=== PATIENT | female | born 1995 ===

== ENCOUNTER 2020-02-11 09:14 | Inpatient (IN) | payer BC ==
[~2020-02-11] VITALS: Ht 157.5 cm; Wt 75.0 kg
[2020-02-13] VITALS (44 sets, daily range): BP systolic 98–137; BP diastolic 56–89; PULSE 62–102; TEMP 98.1–98.4
[2020-02-13] MEDS ORDERED: PRENATAL TABLET PO (06:30)
[2020-02-13 07:30] LABS: BASO % 0.5 % (0.0-2.0); EOS # 0.1 (0.0-0.7); EOS % 0.6 % (0-4.0); GRAN # 5.4 (1.4-6.5); GRAN % 66.6 % (42.2-75.2); HEMOGLOBIN 11.2 g/dl (12.5-16.0); LYMPH # 1.8 (1.2-3.4); LYMPH % 22.6 % (20.0-51.0); MEAN CELL VOLUME 87 fl (80.0-100.0); MEAN CORPUSCULAR HEMOGLOBIN 28 pg (27.0-31.0); MEAN CORPUSCULAR HGB CONC 33 g/dl (33.0-37.0); MEAN PLATELET VOLUME 10.9 fl (7.4-10.4); MONO # 0.7 (0.1-0.6); MONO % 9.2 % (1.7-9.3); PLATELET COUNT 265 K/mm3 (130-400); RED BLOOD COUNT 3.95 M/mm3 (4.10-5.30); REDCELL DISTRIBUTION WIDTH-CV 13.7 % (11.5-14.5)
--- NOTE | 2020-02-13 07:31 | NUR ---
0606 PATIENT HERE FOR INDUCTION OF LABOR. ASSESSMENT COMPLETED. EFM ON FHT 135 BABY VERY ACTIVE. OCCASIONAL CONTRACTIONS NOTED TO STRIP BUT NOT FELT BY PATIENT. IV STARTED.
[2020-02-13 07:35] LABS: HEMATOCRIT 34.2 % (37.0-47.0)
--- NOTE | 2020-02-13 11:44 | NUR ---
1120 PATIENT READY FOR EPIDURAL. Juani BURGESS CALLED AND SITS UP ON EDGE OF BED TOLERTES WELL. SEE Juani BURGESS BORING MACHINE FEEDER FOR QUESTIONS.
--- NOTE | 2020-02-13 16:14 | NUR ---
1530 patient complete will start pushing. Dr Romano called to come for delivery.
--- NOTE | 2020-02-13 16:16 | NUR ---
[address] SHAY AT [facility]. 1545 PATIENT PUSHES AND BABY BOY BORN VIA BY DR SHAY. STRONG CRY NOTED. CORD CLAMPED AND CUT BY AND BABY TO MOMS CHEST SKIN TO SKIN. 1547 PLACENTA DELIVERED AND PITOCIN STARTED AT 333 PER PROTOCOL. FUNDUS FIRM AND BLEEDING WNL
[2020-02-14 02:00] VITALS: BP 119/73; PULSE 72; TEMP 98.3
[2020-02-14 07:58] VITALS: BP 127/79; PULSE 95; TEMP 98.4
[2020-02-14] MEDS ORDERED: IBU800 M1 PO (09:52)
--- NOTE | 2020-02-14 17:29 | NUR ---
Discharge instructions given, pt verbalizes understanding. No further questions noted.
== END 2020-02-14 19:00 | disposition home or self-care (01) | DRG 807 ==
LOC: OB 02-13 06:35 → LDR 02-13 06:35 → OB 02-13 16:25
PROVIDERS: ADMIT Obstetrics & Gynecology
PROC: 10E0XZZ Delivery of Products of Conception, External Approach (ICD-10-PCS; principal; 2020-02-13)
PROC: 0KQM0ZZ Repair Perineum Muscle, Open Approach (ICD-10-PCS; 2020-02-13)
PROC: 10907ZC Drainage of Amniotic Fluid, Therapeutic from Products of Conception, Via Natural or Artificial Opening (ICD-10-PCS; 2020-02-13)
PROC: 3E033VJ Introduction of Other Hormone into Peripheral Vein, Percutaneous Approach (ICD-10-PCS; 2020-02-13)
DX: O48.0 Post-term pregnancy (principal); Z37.0 Single live birth; Z3A.41 41 weeks gestation of pregnancy; O70.1 Second degree perineal laceration during delivery; O77.0 Labor and delivery complicated by meconium in amniotic fluid
CPT/HCPCS: J2590; J2795; J7120

== ENCOUNTER → 2020-02-25 | Outpatient (CLI) | payer BC ==
[~2020-02-25] MED LIST: IBU800 M1 PO; PRENATAL TABLET PO
--- NOTE | 2020-02-25 13:10 | NUR ---
Pt, Gabby De La Cruz, presents for outpatient consult with 12 day old baby boy, Jonathan De La Cruz, for a evaluation. She states concerns about swallowing, milk supply, and if baby gets enough to eat because of frequent feedings. Jonathan was born by on [birth year] and weighed 6#15.5oz (3160 gms). He is pt's first baby. Pt reports at his first doctor appt., 3 days of age, he weighed 6#13oz. Because pt has concerns about the frequent feedings she has pumped and provided 1.5 to 2oz supplemental bottles TID. She has pumped some to save for return to work as well. Today Jonathan weighs 7#13 oz, (3544 gms). Pt handles Jonathan well, latching easily to each breast. Swallows noted. Pt advised on breast compression to help move more milk when his swallows slow. After nursing bilateraly Jonathan had a weight gain of 2.4oz (68 gms). Reviewed normal patterns for newborns, suggested discontinue pumping for a few days to see if having more milk in the breasts helps him space his feedings out more, and try switch nursing where he is offerd the breast, back and forth, until he is satisfied. POC: As noted above, and BF ad ju. F/U: as scheduled with Dr. Raymond or KAPIL as needed. Questions ivnited and answered.
== END ==
LOC: LAC 12:45
DX: Z39.1 Encounter for care and examination of lactating mother (principal)